=== PATIENT | male | born 1990 | race Caucasian/White ===

== ENCOUNTER 2020-08-07 09:52 | Day surgery (SDC) | payer BC ==
[2020-08-07] MEDS ORDERED: CEFAZOLIN/SWI 1gm 0 GM/0 ML SYR ONE (10:24)
[2020-08-07] MEDS ORDERED: Ringers Lactate 1,000 ML IV ONE ×2 (10:24→14:10)
[2020-08-07] MEDS ORDERED: LIDOCAINE 1% W/EPI 1:100,000 MDV 20 ML VIAL ONE (10:45)
[2020-08-07] MEDS ORDERED: OXYMETAZOLINE HCL 0.05% 15ML NAS ONE (10:45)
[2020-08-07] MEDS ORDERED: BACITRACIN OINTMENT 15 GM TUBE TOP ONE (10:45)
[2020-08-07] MEDS ORDERED: OFLOXACIN OPH 0.3%-5 ML BTL ONE (10:45)
[2020-08-07] MEDS ORDERED: EPINEPHRINE/PF 1 MG/ML AMP ONE (10:45)
[2020-08-07] MEDS ORDERED: NA CHLORIDE 0.9% 0 ML ONE (11:01)
[2020-08-07] MEDS ORDERED: propofoL 200 MG/20 ML VIAL IV ONE (11:05)
[2020-08-07] MEDS ORDERED: MIDAZOLAM HCL 2 MG/2 ML INJ ONE (11:05)
[2020-08-07] MEDS ORDERED: FENTANYL CITR 100 MCG/2 ML ONE (11:05)
[2020-08-07] MEDS ORDERED: ROCURONIUM 50 MG/5 ML VIAL IV ONE (11:06)
[2020-08-07] MEDS ORDERED: dexAMETHasone 4 MG/ML VIAL ONE (11:06)
[2020-08-07] MEDS ORDERED: ONDANSETRON 4 MG/2 ML VIAL ONE (11:06)
[2020-08-07] MEDS ORDERED: LIDOCAINE 2% MPF 5 ML VIAL ONE (11:07)
[2020-08-07] MEDS ORDERED: EPHEDRINE SULF 50 MG/ML VIAL ONE (12:44)
[2020-08-07] MEDS ORDERED: KETOROLAC 30 MG/ML INJ ONE (14:05)
--- NOTE | 2020-08-07 14:10 | P.BOP ---
Preoperative diagnosis: R TM perf, CHL Postoperative diagnosis: same Primary procedure: R tympanoplasty Engagement Lead: NONE,NONE Estimated blood loss: <5ML Specimen: none Findings: moderate size perforation, tympanosclerosis Anesthesia: General Complications: None Implants: none Fluids & blood products: 1L crystalloid Transferred to: Recovery Room Condition: Good
[2020-08-07 14:29] VITALS: O2SAT 100
[2020-08-07 14:54] VITALS: BP 138/87; TEMP 97.2
--- NOTE | 2020-08-07 22:01 | OP ---
Date of Procedure: 08/07/2020 Surgeon: Jacki Agee MD Preoperative Diagnoses: Right tympanic perforation with conductive hearing loss. Postoperative Diagnoses: Right tympanic perforation with conductive hearing loss with significant tympanosclerosis. Procedure: Right tympanoplasty. Indication For Procedure: Dylan presented with a moderate-sized right tympanic membrane and low-frequency conductive hearing loss. The risks, benefits, and alternatives to the procedure were discussed with the patient, who agreed to proceed. Description Of Procedure: The patient was brought to the operating room. He was placed under general anesthesia via oral endotracheal tube. The head was turned toward the left for exposure of the right ear. The right ear was examined under the operating microscope and mild amount of cerumen was removed with a wire loop. The perforation was removed and was somewhat kidney-cherry shaped and encompassed about 30% to 40% of the inferior tympanic membrane. The eardrum appeared significantly calcified and thickened, and there were areas of tympanosclerosis noted within the middle ear mucosa. The ear canal was carefully injected with lidocaine with epinephrine and was prepped with Betadine, taking care to avoid excessive Betadine into the middle ear. A cotton ball was placed at the meatus and the remaining ear was prepped and draped in the standard sterile fashion. A 2 cm postauricular incision was made through the skin and subcutaneous tissues. A graft of loose areolar tissue was collected, pressed and dried. The incision was closed in layered fashion using 4-0 Vicryl deep sutures and 5-0 fast-absorbing gut on the skin. Attention was then turned to the ear canal. A 6 mm otologic speculum was used to help visualize the eardrum. This was then exchanged for a 6.5 for better visualization. A Barrett needle was used to carefully freshen the edges by removal of a small amount of tissue circumferentially around the edges of the perforation. A harriett elevator and cup forceps and up-biting cup forceps were used to remove small areas of calcification adjacent to the inferior anterior aspect of the perforation. Once the edges of the perforation were adequately prepared, a tympanomeatal flap was created by incising the skin at the bony cartilaginous junction of the ear canal using a round knife. The flap was elevated using a duckbill elevator until the fibrous annulus was encountered. The mucosa of the middle ear was punctured with a Barrett needle and a Tai elevator was used to carefully elevate the fibrous annulus from the middle ear. The chorda tympani nerve was identified in the superior aspect and was left intact throughout the surgery. Once the flap was adequately elevated, the middle ear was filled with Floxin soaked dissolvable ultrafoam to provide support to the graft. The loose areolar tissue graft was then trimmed to the appropriate size and placed in a medial onlay technique ensuring the graft completely covered the perforation. Additional Floxin soaked ultra foam was placed in the middle ear to ensure adequate support for the graft. The tympanomeatal flap was then replaced. The perforation was again inspected ensuring that the perforation was completely covered by the graft. The ear canal was then filled with Floxin soaked ultrafoam. Once completed, the drapes were removed, the ear and surrounding tissues were cleaned with saline, and a mastoid dressing was applied using Xeroform to cover the postauricular incision, a cotton ball within the meatus, fluff dressing around the ear, and a Salvatore gauze wrapping around the head. The patient was then returned to Anesthesia for awakening and extubation. The patient was extubated while still significantly sedated in order to avoid coughing during emergence. He was then transported in a stable condition to the recovery room and will be discharged home later today in the care of his family. Appropriate written postoperative instructions are given to the patient. He will follow up with Dr. Agee in approximately 1 month for re-evaluation of healing. LASHELL Voice ID: [id number] Report ID: [id number] ISABEL
== END 2020-08-07 15:30 | disposition home or self-care (01) ==
LOC: OR 09:52
PROVIDERS: ATTEND Otolaryngology
PROC: 09U777Z Supplement Right Tympanic Membrane with Autologous Tissue Substitute, Via Natural or Artificial Opening (ICD-10-PCS; principal; 2020-08-07 11:15)
DX: H72.01 Central perforation of tympanic membrane, right ear (principal); H90.11 Conductive hearing loss, unilateral, right ear, with unrestricted hearing on the contralateral side; H74.01 Tympanosclerosis, right ear; F98.8 Other specified behavioral and emotional disorders with onset usually occurring in childhood and adolescence; Z88.0 Allergy status to penicillin; Z87.891 Personal history of nicotine dependence; Z20.828 Contact with and (suspected) exposure to other viral communicable diseases
CPT/HCPCS: 69631; 15769; U0002; J2704; J1100; J2250; J3010; J7120 ×2; J2405; J0171; J0690; J7040